=== PATIENT | male | born 1945 | race Caucasian/White ===

== ENCOUNTER 2024-10-04 12:38 | Inpatient (IN) ==
[2024-10-04] MEDS: SODIUM CHLORIDE 0.9% 500 ML IV SCH (12:51)
--- NOTE | 2024-10-04 12:59 | XRay Report ---
XR chest 1V portable CLINICAL HISTORY: trauma COMPARISON STUDY: None FINDINGS: Left cardiac pacemaker is present. Heart size and pulmonary vasculature are normal. No cons olidation or pleural effusion seen. No pneumothorax. IMPRESSION: No acute findings. ACT 112: Negative or not required by law. Electronically signed by: Madhav Louis M.D. 10/04/2024 12:58 PM
[2024-10-04 13:02] LABS: Base Excess VBG 3.0 mEq/L; HCO3 VBG 29 mmol/L; Oxygen Saturation VBG < 60.0 %; PCO2 VBG 49 mmHg (38-50); PO2 VBG 22 mmHg; pH VBG 7.38 (7.36-7.41)
--- NOTE | 2024-10-04 13:15 | Emergency Department Note ---
Impression & Plan Weakness, Falling, Dehydration, Pancytopenia, Elevated troponin ED Provider Note NAME: GONZÁLEZ HOLM AGE: 78 SEX: M : 1945 ARRIVES VIA: Ambulance INFORMANT: [Patient][ems] ED PROVIDER(S): [John Yusuf MD] CHIEF COMPLAINT: Trauma HISTORY OF PRESENT ILLNESS: The patient is a 78-year-old male who presents to the ED as a trauma alert. The patient was found on his porch by home health, the exact time that he was down is unknown. As per report, he had fallen around 6 times yesterday. The patient complained of bilateral leg weakness. He denied any headache or neck pain. He did not have chest pain, there was no shortness of breath. No abdominal pain. No real pain to the extremities. No complaints of back discomfort. The patient states that his blood sugar has been running a bit high lately. There has been no cough or congestion. The patient does take aspirin, no other stronger blood thinning agents. PMHx/PSHx/Social Hx: See Below PHYSICAL EXAM: Primary Survey Airway: Intact Breathing: Breath sounds equal bilaterally. No respiratory distress Circulation: Skin warm, capillary refill less than 2 seconds Disability: Pupils equal and reactive to light Motor Function: Moves all extremities. Sensory: No deficits Secondary Survey GEN: Well developed and well-nourished HEAD: Normocephalic, atraumatic. Mucous membranes dry. EYES: Pupils round and reactive to light, conjunctiva clear, extraocular movements intact ENT: No fluid in external acoustic canals, nares patent, oropharynx clear NECK: Midline trachea, no cervical spine tenderness HEART: Regular rate and rhythm LUNGS: Clear to auscultation bilaterally CHEST: Chest wall non-tender, no bruising/deformity ABD: No contusions, soft, non-tender, no distention PELVIS: Stable to rock BACK: No step offs or deformities, T-L spine non tender EXT: Moving all extremities well, no gross deformities NEURO: No focal motor deficits, no sensory deficits DIFFERENTIAL DIAGNOSIS: Intracranial injury, cervical spine injury, dehydration, electrolyte imbalance, bacteremia, UTI, among others. EMERGENCY DEPARTMENT PROCEDURES: C-spine was clearly cleared at 1330, once the CT imaging returned. MEDICAL DECISION MAKING: There is a pancytopenia present, I have no old values to use for comparison. No bandemia. No coagulopathy. VBG did not show acidosis. There was some elevation to the creatinine at 1.94. Glucose was elevated at 285. Lactic acid level was not elevated making sepsis less likely. No liver enzyme elevation. TSH was slightly high however, the T4 was normal. ECG showed a sinus rhythm with inverted T waves, no old ECGs to use for comparison. Cardiac enzyme testing x 1 was somewhat elevated, this troponin elevation could be secondary to his renal disease, mismatch or potentially acute cardiac injury. Chest x-ray does not show pneumonia or pneumothorax. Brain CT shows chronic hygromas, no acute intracranial bleeding. No brain shift. C-spine CT showed no acute fracture. On exam, the patient appeared dehydrated. The patient received IV saline, 1.5 L. He was given IV Tylenol for pain, IV Zofran for nausea. Patient presents after falling multiple times in the last 24 hours. No serious traumatic findings by our workup. Patient is clearly in need of a hospital stay, strengthening, hydration. He may not be safe for discharge back to his residence. I did speak with the patient and case management, the on-call hospitalist was consulted. Prior/Outside records/notes reviewed: Today's EMS notes describing his presentation and transport to this hospital. ECG per my interpretation: Indication was weakness, trauma. The ECG shows a sinus rhythm with PACs. The rate is 89. There are inverted T waves seen in the inferior and lateral leads. There is no ST elevation. No PVCs. The QTc is 455. No old ECGs available for comparison. Continuous Cardiac Monitoring per my interpretation: An order was placed for continuous cardiac monitoring. The monitor shows a rate of 86 with sinus rhythm with PACs. Imaging/x-ray results per my interpretation: Chest x-ray does not show mediastinal widening, pneumonia or pneumothorax. No obvious acute traumatic chest injury by plain x-ray. Chronic Medical/Social conditions affecting care: Advanced age. Care/Management discussed with: Case management, the on-call hospitalist. Level of care consideration(s): After review of the information above and other included data: --I believe the patient requires escalation of care to admission DISPOSITION: Admission Past Med/Surg History Problem List (Updated 10/04/24 @ 14:41 by John Yusuf MD) Elevated troponin (Acute) Pancytopenia (Acute) Dehydration (Acute) Falling (Acute) Weakness (Acute) Medical History Diabetes mellitus Social History Smoking Status: Never smoker Preferred Language: Algerian Feels Safe at Home: Yes Home Meds Home Medications Medication Instructions Recorded Confirmed aspirin 81 mg tablet,delayed 81 mg PO DAILY 10/04/24 10/04/24 release carvedilol 6.25 mg tablet (Coreg) 6.25 mg PO BID 10/04/24 10/04/24 chlorthalidone 25 mg tablet 25 mg PO DAILY 10/04/24 10/04/24 cyanocobalamin (vitamin B-12) 1,000 mcg PO DAILY 10/04/24 10/04/24 1,000 mcg tablet (Vitamin B-12) insulin glargine 100 unit/mL (3 25 unit subcut DAILY 10/04/24 10/04/24 mL) subcutaneous pen meloxicam 15 mg tablet 7.5 mg PO DAILY 10/04/24 10/04/24 potassium chloride 20 mEq 40 meq PO DAILY 10/04/24 10/04/24 tablet,extended release rosuvastatin 10 mg tablet 10 mg PO DAILY 10/04/24 10/04/24 Results & Data (ED) Vital Signs Vital Signs - 24 hr 10/04/24 12:40 10/04/24 12:40 10/04/24 12:40 Temperature 36.5 C 36.5 C Temperature Source Oral Pulse Rate 92 H 92 H Pulse Rate [Apical] Pulse Strength [Bilateral Femoral] Normal Respiratory Rate 17 17 Respiratory Effort / Characteristics Non-Labored Spontaneous Respiratory Depth Normal Respiratory Pattern Regular Blood Pressure 152/95 H 152/95 H Blood Pressure [Right Arm] Blood Pressure Mean 114 Blood Pressure Mean [Right Arm] Pulse Oximetry 94 94 94 Oxygen Delivery Method Room Air Room Air Room Air Oxygen Flow Rate 0 Sepsis Recent Fever Within 48 Hours No Sepsis New/Unexplained Change in Mental Status No Sepsis Action Taken by Nursing No Action Required 10/04/24 12:40 10/04/24 13:08 Temperature 36.5 C Temperature Source Oral Pulse Rate 86 Pulse Rate [Apical] 92 H Pulse Strength [Bilateral Femoral] Respiratory Rate 17 Respiratory Effort / Characteristics Non-Labored Spontaneous Respiratory Depth Normal Respiratory Pattern Blood Pressure Blood Pressure [Right Arm] 152/95 H Blood Pressure Mean Blood Pressure Mean [Right Arm] 114 Pulse Oximetry 94 Oxygen Delivery Method Room Air Oxygen Flow Rate Sepsis Recent Fever Within 48 Hours Sepsis New/Unexplained Change in Mental Status Sepsis Action Taken by [place] Medications Current Medication List: was personally reviewed by me Laboratory Data Attestation: I reviewed the patient's lab results. 10/04/24 12:46 10/04/24 12:46 Lab Results 10/04/24 10/04/24 Range/Units 12:46 12:49 WBC 1.54 L (4.8-10.8) K/ul RBC 4.10 L (4.70-6.10) M/uL Hgb 12.9 L (14.0-18.0) g/dl POC Hgb 11.9 L (14.0-18.0) g/dl Hct 36.3 L (42.0-52.0) % POC Hct 35 L (42-52) % MCV 88.5 (80.0-100.0) fL MCH 31.5 (25.0-34.0) pg MCHC 35.5 (32.0-36.0) g/dL RDW Std Deviation 43.0 (36.4-46.3) fL RDW Coeff of Melissa 13.2 (11.5-14.5) % Plt Count 63 L (130-400) K/uL MPV 11.3 (9.4-12.4) fL Immature Gran % (Auto) 1.3 % Neut % (Auto) 71.5 % Lymph % (Auto) 10.4 % [place] % (Auto) 16.2 % Eos % (Auto) 0.0 % Baso % (Auto) 0.6 % Neut # (Auto) 1.10 L (1.40-6.50) K/uL Lymph # (Auto) 0.16 L (1.20-3.40) K/uL [place] # (Auto) 0.25 (0.11-0.59) K/uL Eos # (Auto) 0.00 (0.00-0.50) K/uL Baso # (Auto) 0.01 (0.00-0.20) K/uL Immature Gran # (Auto) 0.02 (0.01-0.20) K/uL Polychromasia 1+ PT 10.1 (9.0-12.0) Seconds INR 0.9 (0.9-1.1) APTT 35 H (21-31) Seconds PTT Ratio 1.3 VBG pH 7.38 (7.36-7.41) VBG pCO2 49 (38-50) mmHg VBG pO2 22 mmHg VBG HCO3 29 mmol/L VBG O2 Saturation < 60.0 % VBG Base Excess 3.0 mEq/L POC Sodium 133 L (135-144) mmol/L Sodium 133 L (136-145) mmol/L POC Potassium 3.4 (3.3-5.0) mmol/L Potassium 3.4 L (3.5-5.1) mmol/L POC Chloride 96 L (101-112) mmol/L Chloride 97 L (98-107) mmol/L Carbon Dioxide 27 (21-32) mmol/L POC Total CO2 24 (24-31) mmol/L Anion Gap 9 (3-11) POC Anion Gap 17.0 (16-25) mmol/L POC BUN 40 H (7-18) mg/dl BUN 45 H (6-23) mg/dl Creatinine 1.94 H (0.6-1.4) mg/dl POC Creatinine 2.0 H (0.6-1.3) mg/dl Est Cr Clr Drug Dosing 32.4 ml/min eGFR 34.78 BUN/Creatinine Ratio 23.2 H (10-20) Glucose 285 H (70-99(Fasting)) mg/dl POC Glucose (other) 272 H (70-99) mg/dl Lactate 1.3 (0.4-2.0) mmol/L Calcium 8.2 L (8.6-10.3) mg/dl POC Ioniz Calcium Emilia 1.01 L (1.12-1.32) mmol/l Magnesium 2.1 (1.7-2.4) mg/dl Total Bilirubin 0.8 (0.2-1.0) mg/dl AST 32 (13-39) U/L ALT 23 (7-52) U/L Alkaline Phosphatase 76 (34-104) U/L Total Creatine Kinase 135 (30-223) U/L Troponin I High Sens 79.2 H* (0-20) pg/ml Total Protein 6.2 (6.0-8.3) gm/dl Albumin 3.1 L (3.4-5.0) gm/dl Globulin 3.1 (2.5-4.0) gm/dl Albumin/Globulin Ratio 1.0 (0.9-2) TSH 5.255 H (0.300-4.500) uIu/ml Free T4 0.69 (0.61-1.60) ng/dl Administered Medications Sodium Chloride (Nss) 1,000 mls @ 999 mls/hr IV .Q1H1M ONE Stop: 10/04/24 15:03 Last Admin: 10/04/24 14:16 Dose: 999 mls/hr Documented By: VIC Discontinued Medications Sodium Chloride (Nss) 500 mls @ 999 mls/hr IV .Q31M LOTUS Stop: 10/04/24 13:15 Last Infusion: 10/04/24 13:23 Dose: Infused Documented By: Admin: 10/04/24 12:51 Dose: 999 mls/hr Documented By: RAMÓN Acetaminophen (Ofirmev) 1,000 mg in 100 mls @ 400 mls/hr IV NOW STA Stop: 10/04/24 14:19 Last Admin: 10/04/24 14:15 Dose: 400 mls/hr Documented By: VIC Ondansetron HCl (Ondansetron Inj 2 Mg/Ml 2 Ml Vial) 4 mg IV NOW STA Stop: 10/04/24 14:06 Last Admin: 10/04/24 14:15 Dose: 4 mg Documented By: VIC Imaging Data Radiologist's Impression: Cervical Spine CT 10/04/24 12:43 CT cervical spine wo con CT DOSE: 1217.53 mGy.cm CLINICAL HISTORY: 78 years-old Male with fall. Acute neck pain status post fall COMPARISON: Head CT same day TECHNIQUE: Multiple axial CT images of the cervical spine were obtained without contrast. A dose lowering technique was utilized adhering to the principles of ALARA. FINDINGS: Straightening of the normal cervical lordosis. Moderate to severe multilevel intervertebral disc space narrowing and, spondylitic spurring and facet arthrosis. Chronic appearing metallic density BB's are lodged within the left facial structures. Multinodular thyroid. Chronic appearing left cerebellar lacunar infarcts. Left subclavian pacer. The visualized lung apices appear clear. IMPRESSION: No acute cervical spine fracture or subluxation. ACT 112: Negative or not required by law. The above report was generated using voice recognition software. It may contain grammatical, syntax or spelling errors. Electronically signed by: John Garibay M.D. 10/04/2024 1:20 PM Chest X-Ray 10/04/24 12:43 XR chest 1V portable CLINICAL HISTORY: trauma COMPARISON STUDY: None FINDINGS: Left cardiac pacemaker is present. Heart size and pulmonary vasculature are normal. No consolidation or pleural effusion seen. No pneumothorax. IMPRESSION: No acute findings. ACT 112: Negative or not required by law. Electronically signed by: Madhav Louis M.D. 10/04/2024 12:[address] 10/04/24 12:43 CT SCAN OF THE BRAIN WITHOUT IV CONTRAST CLINICAL HISTORY: Fall. COMPARISON STUDY: None. TECHNIQUE: Unenhanced axial CT scan of the brain was performed from the vertex to the skull base. A dose lowering technique was utilized adhering to the principles of ALARA. FINDINGS: No acute intracranial hemorrhage is present. The ventricular system is unremarkable. Basal cisterns are patent. Note is made of CSF attenuation subdural collections, right larger than left. The right collection measures 1 cm in thickness. There is mild associated sulcal effacement. Old lacunar infarcts within left cerebellar hemisphere present. White matter hypodensity suggests small vessel disease. 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 Several left facial metallic densities are present. There is mild sinus mucosal thickening. There are no calvarial fractures. IMPRESSION: 1. No acute intracranial findings. 2. No calvarial fractures. 3. CSF attenuation subdural collections, right larger than left. Minimal sulcal effacement. These are chronic and may represent subdural hygromas or chronic subdural hematomas. ACT 112: Negative or not required by law. Electronically signed by: Wang Abel M.D. 10/04/2024 1:18 PM Discharge Plan Visit Data Chief Complaint: Trauma Stated Complaint: FALL, LACS TO HEAD, AMS ED Provider: John Yusuf Discharge Problem: Weakness, Falling, Dehydration, Pancytopenia, Elevated troponin Patient Disposition: Admitted As Inpatient Condition: Fair Forms Stand Alone Forms: My [facility], Important Visit Information Prescriptions Prescriptions: No Action carvedilol [Coreg] 6.25 mg Tablet 6.25 mg PO BID Rx Instructions: must administer with a meal/food meloxicam 15 mg Tablet 7.5 mg PO DAILY cyanocobalamin (vitamin B-12) [Vitamin B-12] 1,000 mcg Tablet 1,000 mcg PO DAILY chlorthalidone 25 mg Tablet 25 mg PO DAILY aspirin 81 mg Tablet,Delayed Release (Dr/Ec) 81 mg PO DAILY rosuvastatin 10 mg Tablet 10 mg PO DAILY insulin glargine 100 unit/mL (3 mL) Insulin Pen 25 unit SUBCUT DAILY potassium chloride 20 mEq Tablet Extended Release 40 meq PO DAILY Referrals Referrals: PCP,NO [Physician] -
--- NOTE | 2024-10-04 13:19 | CT Scan Report ---
CT SCAN OF THE BRAIN WITHOUT IV CONTRAST CLINICAL HISTORY: Fall. COMPARISON STUDY: None. TECHNIQUE: Unenhanced axial CT scan of the brain was performed from the vertex to the skull base. A dose lowering technique was utilized adhering to the principles of ALARA. FINDINGS: No acute intracranial hemorrhage is present. The ventricular system is unremarkable. Basal cisterns are patent. Note is made of CSF attenuation subdural collections, right larger than left. Th e right collection measures 1 cm in thickness. There is mild associated sulcal effacement. Old lacuna r infarcts within left cerebellar hemisphere present. White matter hypodensity suggests small vessel disease. 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 Several left facial metallic densities are present. There is mild sinus mucosal thickening. There are no calvarial fractures. IMPRESSION: 1. No acute intracranial findings. 2. No calvarial fractures. 3. CSF attenuation subdural collections, right larger than left. Minimal sulcal effacement. These are chronic and may represent subdural hygromas or chronic subdural hematomas. ACT 112: Negative or not required by law. Electronically signed by: Wang Abel M.D. 10/04/2024 1:18 PM
[2024-10-04 13:20] LABS: Hematocrit (blood only) 36.3 % (42.0-52.0); Hemoglobin 12.9 g/dl (14.0-18.0); Mean Corpuscular Hemoglobin 31.5 pg (25.0-34.0); Mean Corpuscular Volume 88.5 fL (80.0-100.0); Platelet Count 63 K/uL (130-400); RDW Standard Deviation 43.0 fL (36.4-46.3); Red Blood Count 4.10 M/uL (4.70-6.10); White Blood Count 1.54 K/ul (4.8-10.8)
--- NOTE | 2024-10-04 13:23 | CT Scan Report ---
CT cervical spine wo con CT DOSE: 1217.53 mGy.cm CLINICAL HISTORY: 78 years-old Male with fall. Acute neck pain status post fall COMPARISON: Head CT same day TECHNIQUE: Multiple axial CT images of the cervical spine were obtained without contrast. A dose low ering technique was utilized adhering to the principles of ALARA. FINDINGS: Straightening of the normal cervical lordosis. Moderate to severe multilevel intervertebral disc space narrowing and, spondylitic spurring and facet arthrosis. Chronic appearing metallic densi ty BB's are lodged within the left facial structures. Multinodular thyroid. Chronic appearing left ce rebellar lacunar infarcts. Left subclavian pacer. The visualized lung apices appear clear. IMPRESSION: No acute cervical spine fracture or subluxation. ACT 112: Negative or not required by law. The above report was generated using voice recognition software. It may contain grammatical, syntax o r spelling errors. Electronically signed by: John Garibay M.D. 10/04/2024 1:20 PM
[2024-10-04 13:25] LABS: Alanine Aminotransferase 23.0 U/L (7-52); Albumin Globulin Ratio 1.0 (0.9-2); Alkaline Phosphatase 76.0 U/L (34-104); Anion Gap 9.0 (3-11); Bilirubin,Total 0.8 mg/dl (0.2-1.0); Blood Urea Nitrogen 45.0 mg/dl (6-23); Calcium 8.2 mg/dl (8.6-10.3); Carbon Dioxide 27.0 mmol/L (21-32); Chloride 97.0 mmol/L (98-107); Creatine Kinase 135.0 U/L (30-223); Creatinine Clr Calc Pharmacy 32.4 ml/min; Globulin 3.1 gm/dl (2.5-4.0); Glucose 285.0 mg/dl (70-99(Fasting)); Magnesium 2.1 mg/dl (1.7-2.4); Potassium 3.4 mmol/L (3.5-5.1); Sodium 133.0 mmol/L (136-145); Total Protein 6.2 gm/dl (6.0-8.3)
[2024-10-04 13:32] LABS: Immature Granulocytes # (auto) 0.02 K/uL (0.01-0.20); Immature Granulocytes % (auto) 1.3 %; Polychromasia 1+
[2024-10-04 13:35] LABS: INR 0.9 (0.9-1.1); Partial Thromboplastin Time 35 Seconds (21-31); Prothrombin Time 10.1 Seconds (9.0-12.0)
[2024-10-04 13:39] LABS: Thyroid Stimulating Hormone 5.255 uIu/ml (0.300-4.500)
[2024-10-04] MEDS: ACETAMINOPHEN 1,000 MG/100 ML VIAL IV STA (14:15)
[2024-10-04] MEDS: ONDANSETRON INJ 2 MG/ML 2 ML VIAL IV STA (14:15)
[2024-10-04] MEDS: SODIUM CHLORIDE 0.9% 1,000 ML IV ONE (14:16)
--- NOTE | 2024-10-04 14:42 | History & Physical Report ---
Date of Service October 04, 2024 Assessment & Plan (1) Pancytopenia: (2) Elevated troponin: (3) Generalized weakness: (4) Recurrent falls: (5) Chronic heart failure with preserved ejection fraction (HFpEF): (6) History of complete heart block: (7) Pacemaker: (8) CAD (coronary artery disease): (9) HTN (hypertension): (10) Diabetes mellitus, type II: Plan: Assessment and Plan per Dr Wilcox. See addendum Admit telemetry Full Code as per discussion with pt Follows with [facility] for routine care Pt was seen and care coordinated with Dr Wilcox. See addendum I spent a total of 75 minutes reviewing notes, outpatient records, labs, medication, coordinating, documenting and providing care for this patient excluding time spent in the performance of separately billed services and excluding time spent by another provider/QHP. History of Present Illness Chief Complaint: Recurrent falls Primary Care Provider: [facility] Patient is 78 year old male with PMH CAD s/p multiple RCA stents including cover stents on 08/24/2018, complicated by complete heart block and perforation, s/p pacemaker 08/29/2018, h/o pericardial effusion resolved spontaneously and did not require drainage, chronic HFpEF, HTN, HLD, DM II, PTSD, vitamin D deficiency, and others listed below presented to ER with c/o recurrent falls. Per outpatient chart review of scanned records pt with History hospitalization at [facility] 08/18/2024 with diagnosis of acute on chronic HFpEF, E coli UTI. Patient states was also treated for pneumonia. He reports since home has had continued generalized weakness. Patient reports chronic bilateral posterior leg pain and chronic BLE weakness for "many years". He states past several months with generalized weakness. He has walker but does not use it. He reports falls multiple times a day and almost on a daily basis. He states fell at least 6 times yesterday that he reports stands and walks and feels like his legs are giving out causing him to fall. He states he did hit his head yesterday. Denies LOC. He doesn't feel he is getting dizzy prior to falls. Denies CP. States has been SOB with exertion since July 2024. Denies orthopnea. Today he states he went out on porch and sat down and lay on porch until the home health nurse came today but he is unable to determine how long he was on the porch. He has been having difficulty getting up after falls. nurse comes weekly. Reports was placed on diuretics after hospital discharge but unsure of name. He reports 15 pound weight loss over past 5 weeks. He feels his BLE edema has resolved. He unsure of his home medications. He reports poor appetite and ongoing nausea but unable to tell how long been having nausea. Reports decreased oral intake. No known fevers but reports is intermittently cold. Denies known tick bite. Denies diaphoresis, vomiting, abdominal pain, diarrhea, constipation, melena, hematochezia, BRAUN, syncope, vision changes, neck pain, palpitations, cough, sore throat, rhinorrhea, abdominal pain, paresthesias, rashes, urinary symptoms. Allergies Allergy/AdvReac Type Severity Reaction Status Date / Time No Known Allergies Allergy Unverified 10/04/24 14:55 Home Medications Medication Instructions Recorded Confirmed Type aspirin 81 mg tablet,delayed 81 mg PO DAILY 10/04/24 10/04/24 History release carvedilol 6.25 mg tablet (Coreg) 3.125 mg PO BID 10/04/24 10/04/24 History chlorthalidone 25 mg tablet 25 mg PO DAILY 10/04/24 10/04/24 History cholecalciferol (vitamin D3) 25 50 mcg PO DAILY 10/04/24 10/04/24 History mcg (1,000 unit) tablet (Vitamin D3) cyanocobalamin (vitamin B-12) 1,000 mcg PO DAILY 10/04/24 10/04/24 History 1,000 mcg tablet (Vitamin B-12) insulin glargine 100 unit/mL (3 25 unit subcut DAILY 10/04/24 10/04/24 History mL) subcutaneous pen meloxicam 15 mg tablet 7.5 mg PO DAILY 10/04/24 10/04/24 History nifedipine 60 mg tablet,extended 60 mg PO DAILY 10/04/24 10/04/24 History release potassium chloride 20 mEq 40 meq PO DAILY 10/04/24 10/04/24 History tablet,extended release rosuvastatin 10 mg tablet 10 mg PO DAILY 10/04/24 10/04/24 History sitagliptin 50 mg tablet 50 mg PO DAILY 10/04/24 10/04/24 History torsemide 20 mg tablet 20 mg PO DAILY 10/04/24 10/04/24 History Past Med/Surg History Problem List (Updated 10/04/24 @ 19:45 by Katarina Ruiz PA-C) Recurrent falls Generalized weakness Elevated troponin (Acute) Pancytopenia (Acute) Dehydration (Acute) Falling (Acute) Weakness (Acute) Medical History (Updated 10/04/24 @ 19:45 by Katarina Ruiz PA-C) History of complete heart block Pacemaker Chronic heart failure with preserved ejection fraction (HFpEF) CAD (coronary artery disease) HTN (hypertension) Diabetes mellitus, type II Surgical History (Updated 10/04/24 @ 17:43 by Katarina Ruiz PA-C) History of cardiac catheterization Social History (Updated 10/04/24 @ 17:43 by Katarina Ruiz PA-C) Smoking Status: Never smoker Hx Alcohol Use: No Hx Substance Use: No Preferred Language: Scottish Feels Safe at Home: Yes Review of Systems Review of Systems: All systems reviewed & are unremarkable except as noted in HPI & below Physical Exam Physical Exam: General: no distress, WDWN, chronic ill appearing elderly male Head: normocephalic, atraumatic Eyes: conjunctiva non-injected, anicteric ENT: normal inspection external ears, nose, mucous membranes moist Neck: supple, trachea midline, non-tender to palpation Lungs: clear, no respiratory distress, no wheezing/rhonchi/rales CV: RRR, no pretibial edema Abd: normal BS, soft, non-tender Back: no spinous process tenderness to palpation Ext: no cyanosis, no calf tenderness Neuro: A&O x 3, +diffuse upper and lower extremity weakness, normal affect Skin: warm, dry, +abrasions noted all over body Results & Data Results & Data Vital Signs (Past 12 Hours) Vital Signs Temp Pulse Pulse Resp BP BP Pulse Ox 10/04/24 13:08 86 10/04/24 12:40 36.5 C 92 H 17 152/95 H 94 10/04/24 12:40 36.5 C 92 H 17 152/95 H 94 10/04/24 12:40 94 10/04/24 12:40 36.5 C 92 H 17 152/95 H 94 O2 Del Method O2 Flow Rate 10/04/24 13:08 10/04/24 12:40 Room Air 10/04/24 12:40 Room Air 0 10/04/24 12:40 Room Air 10/04/24 12:40 Room Air Laboratory Results Short CBC 10/04/24 10/04/24 10/04/24 Range/Units 12:46 12:46 12:46 WBC 1.54 L Cancelled (4.8-10.8) K/ul Hgb 12.9 L Cancelled (14.0-18.0) g/dl Hct 36.3 L (42.0-52.0) % Plt Count (130-400) K/uL 10/04/24 10/04/24 Range/Units 12:46 12:46 WBC (4.8-10.8) K/ul Hgb (14.0-18.0) g/dl Hct Cancelled (42.0-52.0) % Plt Count 63 L Cancelled (130-400) K/uL BMP 10/04/24 12:46 Sodium 133 L Potassium 3.4 L Chloride 97 L Carbon Dioxide 27 BUN 45 H Creatinine 1.94 H Glucose 285 H Calcium 8.2 L Cardiac Enzymes 10/04/24 Range/Units 12:46 Total Creatine Kinase 135 (30-223) U/L Liver Function 10/04/24 Range/Units 12:46 Total Bilirubin 0.8 (0.2-1.0) mg/dl AST 32 (13-39) U/L ALT 23 (7-52) U/L Alkaline Phosphatase 76 (34-104) U/L Albumin 3.1 L (3.4-5.0) gm/dl Diagnostic Findings Cervical Spine CT 10/04/24 12:43 CT cervical spine wo con CT DOSE: 1217.53 mGy.cm CLINICAL HISTORY: 78 years-old Male with fall. Acute neck pain status post fall COMPARISON: Head CT same day TECHNIQUE: Multiple axial CT images of the cervical spine were obtained without contrast. A dose lowering technique was utilized adhering to the principles of ALARA. FINDINGS: Straightening of the normal cervical lordosis. Moderate to severe multilevel intervertebral disc space narrowing and, spondylitic spurring and facet arthrosis. Chronic appearing metallic density BB's are lodged within the left facial structures. Multinodular thyroid. Chronic appearing left cerebellar lacunar infarcts. Left subclavian pacer. The visualized lung apices appear clear. IMPRESSION: No acute cervical spine fracture or subluxation. ACT 112: Negative or not required by law. The above report was generated using voice recognition software. It may contain grammatical, syntax or spelling errors. Electronically signed by: John Garibay M.D. 10/04/2024 1:20 PM Chest X-Ray 10/04/24 12:43 XR chest 1V portable CLINICAL HISTORY: trauma COMPARISON STUDY: None FINDINGS: Left cardiac pacemaker is present. Heart size and pulmonary vasculature are normal. No consolidation or pleural effusion seen. No pneumothorax. IMPRESSION: No acute findings. ACT 112: Negative or not required by law. Electronically signed by: Madhav Louis M.D. 10/04/2024 12:[address] 10/04/24 12:43 CT SCAN OF THE BRAIN WITHOUT IV CONTRAST CLINICAL HISTORY: Fall. COMPARISON STUDY: None. TECHNIQUE: Unenhanced axial CT scan of the brain was performed from the vertex to the skull base. A dose lowering technique was utilized adhering to the principles of ALARA. FINDINGS: No acute intracranial hemorrhage is present. The ventricular system is unremarkable. Basal cisterns are patent. Note is made of CSF attenuation subdural collections, right larger than left. The right collection measures 1 cm in thickness. There is mild associated sulcal effacement. Old lacunar infarcts within left cerebellar hemisphere present. White matter hypodensity suggests small vessel disease. 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 Several left facial metallic densities are present. There is mild sinus mucosal thickening. There are no calvarial fractures. IMPRESSION: 1. No acute intracranial findings. 2. No calvarial fractures. 3. CSF attenuation subdural collections, right larger than left. Minimal sulcal effacement. These are chronic and may represent subdural hygromas or chronic subdural hematomas. ACT 112: Negative or not required by law. Electronically signed by: Wang Abel M.D. 10/04/2024 1:18 PM Abdomen/Pelvis CT 10/04/24 14:39 EXAMINATION: CT of the abdomen and pelvis performed without contrast TECHNIQUE: Helical CT images from the lung bases through the symphysis pubis were obtained without contrast. Coronal and sagittal reformatted images were generated at a workstation for further assessment. Dose reduction techniques were achieved by using automatic exposure control and/or adjustment of mA and/or kV according to patient size and/or use of iterative reconstruction technique. COMPARISON: None HISTORY: Abdominal pain FINDINGS: Lower chest: No consolidation. No pleural effusion or pneumothorax. Liver: No suspicious liver lesions. Gallbladder: There is a prominent calcified gallstone. The gallbladder is otherwise decompressed. No evidence of acute cholecystitis. Spleen: Normal size. Pancreas: No suspicious pancreatic lesions. The pancreatic duct is not dilated. Adrenal glands: Bilateral adrenal nodules on the left measuring 2.4 x 2.2 cm and the right measuring 1.9 x 1.7 cm, containing internal low-attenuation values compatible with macroscopic fat, indicating lipid rich adenomas. Kidneys: No hydronephrosis or obstructing renal stones. Bilateral simple appearing cysts. Bladder / Pelvic organs: Unremarkable. Bowel: No bowel obstruction. No abnormal bowel wall thickening. The appendix is unremarkable. Lymph nodes: No retroperitoneal, mesenteric, or pelvic lymphadenopathy. Peritoneum / Retroperitoneum: No free fluid or air within the abdomen. Vessels: No infrarenal aortic aneurysm. Heavy aortoiliac calcification. Bones and soft tissues: No suspicious lesion in the bones. IMPRESSION: No acute intra-abdominal process. Bilateral lipid rich adrenal adenomas. Cholelithiasis. Electronically signed by Lupillo Velarde 10-04-2024 4:35 PM Supervising Physician Co-Signing Physician Notes I have seen and discussed the case with the collaborating advanced practitioner. I agree with the above H&P. I have reviewed and confirmed the patients medical history, the findings on physical examination, and the patients diagnosis and treatment plan with Sara AVILA and agree with the information documented. In short, Mr. Watson is a 78 yo who is admitted for evaluation of multiple lab abnormalities including margaret on ckd, new pancytopenia, elevated trop. Patient is not able to relay detailed history accurately, therefore son and grandson aided. He states that he has been weaker and weaker over the course of the last 2 weeks, but never "great" since his hospitalization end of July. He lives alone and relies on his home health and grandson for medication management. Patient does state he often trims the hedges and mows the grass and is unsure if he has been exposed to a tick . Appears to be on chlorthalidone and torsemide 20mg daily from a recent admission at OSH for which he was treated for "heart failure, pneumonia, and urine infection." EXAM notable for chronically ill appearing gentleman with left eye prosthesis/ptosis alert to self, time, location and situation RRR, no murmur clear lung ziegler moving all extremities equally no edema Per chart review in Care Everywhere: 1) ASPIRIN 81MG EC TAB TAKE ONE TABLET BY MOUTH EVERY DAY FOR ACTIVE (S) HEART DISEASE 2) CARVEDILOL 6.25MG TAB TAKE ONE-HALF TABLET BY MOUTH TWICE A ACTIVE DAY FOR CHF, CAD, AND HYPERTENSION Indication: CHF,CAD,HTN 3) CHLORTHALIDONE 25MG TAB TAKE ONE TABLET BY MOUTH EVERY DAY ACTIVE FOR HYPERTENSION 4) CHOLECALCIF 25MCG (D3-1,000UNIT) TAB TAKE TWO TABLETS BY ACTIVE (S) MOUTH EVERY DAY SAME VITAMIN D3 FOR VITAMIN D DEFICIENCY 5) CYANOCOBALAMIN 1000MCG TAB TAKE ONE TABLET BY MOUTH EVERY ACTIVE (S) DAY SAME VITAMIN B12 FOR SUPPLEMENT 6) INSULIN,GLARGINE 100 UNT/ML 3ML SOLOSTAR INJECT 25 UNITS ACTIVE SUBCUTANEOUSLY EVERY DAY FOR DIABETES REPLACES INSULIN GLARGINE-YFGN 7) MELOXICAM 15MG TAB TAKE ONE-HALF TABLET BY MOUTH EVERY DAY ACTIVE NEEDED FOR ONLY NEEDED Indication: BACK PAIN 8) NIFEDIPINE (EQV-CC) 60MG SA TAB TAKE ONE TABLET BY MOUTH ACTIVE EVERY DAY FOR BLOOD PRESSURE 9) POTASSIUM CL 20MEQ SA TAB (DISPERSIBLE) TAKE TWO TABLETS BY ACTIVE MOUTH TWICE A DAY POTASSIUM SUPPLEMENT *NOTE DOSE INCREASE* Indication: HYPOKALEMIA PROHPLAXSIS 10) PRODIGY NO CODE (GLUCOSE) TEST STRIP USE ONE STRIP TWICE A ACTIVE DAY 11) ROSUVASTATIN CA 10MG TAB TAKE ONE TABLET BY MOUTH AT BEDTIME ACTIVE (S) FOR CHOLESTEROL 12) SITAGLIPTIN (EQV-ZITUVIO) 50MG TAB TAKE ONE TABLET BY MOUTH ACTIVE EVERY DAY Indication: FOR TYPE 2 DIABETES 13) TORSEMIDE 20MG TAB TAKE ONE TABLET BY MOUTH EVERY DAY ACTIVE Indication: CHF Prior Diagnostic Test Results: EKG 08/18/2024 showed sinus rhythm, PACs, anterior infarct, ST-T wave changes suggestive of inferolateral wall ischemia. Echocardiogram 08/21/2024 showed ejection fraction of 55%, mildly dilated ascending aorta measured 3.9 cm, trace aortic insufficiency, trace mitral insufficiency and trace tricuspid insufficiency. Follows Dr. [facility] #Pancytopenia #Mild neutropenia coags stable ANC 1121.12 lactate 1.3 Order infectious workup, including lyme and blood cultures order anemia studies CT AB/P ordered Trend CBC with diff CTX and doxy for now (ecoli pansensitive per OSH report and doxy for tick bourne coverage) ESR/CRP and procal pending Neutropenic precautions for now until trend noted hold asa given platelets at 63 #Multiple falls #Generalized weakness PT/OT extensive metabolic work up as above fall precautions #Abnormal EKG #elevated troponin, suspect demand ECHO ordered Trend trop Consider Cardiology contingent on trends #MARGARET on CKD recent labs reviewed and Cr. 1.6, on admission 1.94 discontinue meloxicam suspect over diuresis give chlorthalidone and torsemide on med rec s/p 1.5L NS, potentially iso dehydration v underlying infectious process #hypokalemia replace po continue home po replacement hold chlorthalidone and torsemide trend bmp in am #Hyponatremia 136 when corrected for hyperglycemia better glucose control #Status post multiple coronary stents placed in the right coronary artery #Coronary stent procedure complicated by perforation requiring a covered stent #Complete heart block following stent placement requiring a permanent pacemaker 4 Hooper Pacemaker Dual Chamber, placed [address] Parisi Continue metoprolol BID hold asa continue statin # Diabetes mellitus Update A1C hold oral hypoglycemics glargine 25 Units qd basal bolus while admitted # Essential hypertension discontinue chlorthalidone hold torsemide continue coreg continue nifedipine #Abnormal TFTs TSH 5.255, free T4 0.69 consider follow up as op for repeat in 4-6 weeks # Previous war injury with shrapnel to the left eye and possible traumatic brain injury resulting in some cognitive slowing. monitor for risk of delirium I spent a total of 45 minutes coordinating, documenting, and providing care for this patient excluding time spent in the performance of separately billed services. All of the aforementioned completed outside of collaborating with the assigned advanced practitioner for a full treatment plan. I have reviewed the advanced practitioner's documentation, and I agree with, and take responsibility for the plan of care
[2024-10-04 15:32] LABS: Iron 21.0 mcg/dl (35-175); Total Iron Binding Cap Calc 241.0 mcg/dl (250-450); Transferrin 172.0 mg/dl (200-360); Transferrin (FE) Percent Satur 9.0 % (20-50)
[2024-10-04] MEDS: cefTRIAXone SODIUM 2,000 MG/50 ML BAG IV STA (15:41)
[2024-10-04 15:44] LABS: Procalcitonin 1.17 ng/ml (0-0.5)
[2024-10-04 16:00] LABS: Ferritin 747.8 ng/ml (8-388)
[2024-10-04 16:09] LABS: Lyme Screen Rflx Confirmation Negative (Negative)
--- NOTE | 2024-10-04 16:23 | Electrocardiogram Report ---
Test Reason : Blood Pressure : */* mmHG Vent. Rate : 89 BPM Atrial Rate : 89 BPM P-R Int : 148 ms QRS Dur : 92 ms QT Int : 374 ms P-R-T Axes : 60 25 147 degrees QTcB Int : 455 ms Sinus rhythm with Premature atrial complexes Abnormal ECG No previous ECGs available Confirmed by Lupillo Zaman ([id number]) on 10/04/2024 4:23:15 PM Referred By: REFERRED SELF Confirmed By: Lupillo Zaman
[2024-10-04] MEDS: DOXYCYCLINE HYCLATE 100 MG in DEXTROSE 5% MINI-B 100 ML IV STA (16:33)
--- NOTE | 2024-10-04 16:35 | CT Scan Report ---
EXAMINATION: CT of the abdomen and pelvis performed without contrast TECHNIQUE: Helical CT images from the lung bases through the symphysis pubis were obtained without contrast. Coronal and sagittal reformatted images were generated at a workstation for further assessment. Dose reduction techniques were achieved by using automatic exposure control and/or adjustment of mA and/or kV according to patient size and/or use of iterative reconstruction technique. COMPARISON: None HISTORY: Abdominal pain FINDINGS: Lower chest: No consolidation. No pleural effusion or pneumothorax. Liver: No suspicious liver lesions. Gallbladder: There is a prominent calcified gallstone. The gallbladder is otherwise decompressed. No evidence of acute cholecystitis. Spleen: Normal size. Pancreas: No suspicious pancreatic lesions. The pancreatic duct is not dilated. Adrenal glands: Bilateral adrenal nodules on the left measuring 2.4 x 2.2 cm and the right measuring 1.9 x 1.7 cm, containing internal low-attenuation values compatible with macroscopic fat, indicating lipid rich adenomas. Kidneys: No hydronephrosis or obstructing renal stones. Bilateral simple appearing cysts. Bladder / Pelvic organs: Unremarkable. Bowel: No bowel obstruction. No abnormal bowel wall thickening. The appendix is unremarkable. Lymph nodes: No retroperitoneal, mesenteric, or pelvic lymphadenopathy. Peritoneum / Retroperitoneum: No free fluid or air within the abdomen. Vessels: No infrarenal aortic aneurysm. Heavy aortoiliac calcification. Bones and soft tissues: No suspicious lesion in the bones. IMPRESSION: No acute intra-abdominal process. Bilateral lipid rich adrenal adenomas. Cholelithiasis. Electronically signed by Lupillo Velarde 10-04-2024 4:35 PM
[2024-10-04] MEDS: POTASSIUM CHLORIDE CRTAB 20 MEQ TABCR PO STA (16:36)
[2024-10-04] MEDS ORDERED: POLYETHYLENE (MIRALAX) 17 GM PACK PO PRN (17:17)
[2024-10-04] MEDS ORDERED: CARBOHYDRATES FOR HYPOGLYCEMIA PO PRN (17:17)
[2024-10-04] MEDS ORDERED: DEXTROSE 50% 50 ML SYRINGE IV PRN (17:17)
[2024-10-04] MEDS ORDERED: GLUCOSE 40% GEL 15 GM TUBE PO PRN (17:17)
[2024-10-04] MEDS ORDERED: ONDANSETRON INJ 2 MG/ML 2 ML VIAL IV PRN (17:17)
[2024-10-04] MEDS ORDERED: GLUCAGON FOR INJ 1 MG VIAL SQ PRN (17:17)
[2024-10-04] MEDS ORDERED: GLUCOSE 10 TAB/TUBE PO PRN (17:17)
[2024-10-04] MEDS: INSULIN ASPART PER UNIT CHARGE SC SCH (18:03)
[2024-10-04 19:21] LABS: Appearance Urine Clear (Clear); Bacteria Urine Automated None Seen (None Seen); Epithelial Cell Urine Auto 0-2 /hpf (0-2); Glucose Urine UA 3+ (Negative); RBC Urine Automated 0-2 /hpf (0-2)
[2024-10-04] MEDS: LANTUS PER UNIT CHARGE SQ SCH (21:52)
[2024-10-04] MEDS: DOXYCYCLINE HYCLATE 100 MG CAP PO SCH (22:32)
[2024-10-05 07:42] LABS: Hemoglobin A1C 8.7 % (4.5-5.6)
[2024-10-05] MEDS: CYANOCOBALAMIN (B-12) 500 MCG TABLET PO SCH (07:58)
[2024-10-05] MEDS: NIFEdipine EXTENDED REL 30 MG TABCR PO SCH (07:59)
[2024-10-05] MEDS: CHOLECALCIFEROL 25 MCG (1000 UNITS) TAB PO SCH (08:00)
[2024-10-05] MEDS: ROSUVASTATIN CALCIUM 10 MG TAB PO SCH (08:00)
[2024-10-05] MEDS: POTASSIUM CHLORIDE CRTAB 20 MEQ TABCR PO SCH (08:08)
[2024-10-05] MEDS: ACETAMINOPHEN 325 MG TAB PO PRN (08:08)
[2024-10-05 08:15] LABS: Hematocrit (blood only) 32.5 % (42.0-52.0); Hemoglobin 11.2 g/dl (14.0-18.0); Mean Corpuscular Hemoglobin 30.6 pg (25.0-34.0); Mean Corpuscular Volume 88.8 fL (80.0-100.0); Platelet Count 65 K/uL (130-400); RDW Standard Deviation 44.1 fL (36.4-46.3); Red Blood Count 3.66 M/uL (4.70-6.10); White Blood Count 1.30 K/ul (4.8-10.8)
[2024-10-05 08:36] LABS: Alanine Aminotransferase 21.0 U/L (7-52); Albumin Globulin Ratio 1.2 (0.9-2); Alkaline Phosphatase 65.0 U/L (34-104); Anion Gap 7.0 (3-11); Bilirubin,Total 0.5 mg/dl (0.2-1.0); Blood Urea Nitrogen 40.0 mg/dl (6-23); Calcium 7.9 mg/dl (8.6-10.3); Carbon Dioxide 26.0 mmol/L (21-32); Chloride 104.0 mmol/L (98-107); Creatinine Clr Calc Pharmacy 36.1 ml/min; Globulin 2.5 gm/dl (2.5-4.0); Glucose 152.0 mg/dl (70-99(Fasting)); Potassium 3.3 mmol/L (3.5-5.1); Sodium 137.0 mmol/L (136-145); Total Protein 5.5 gm/dl (6.0-8.3)
[2024-10-05 08:43] LABS: Immature Granulocytes # (auto) 0.01 K/uL (0.01-0.20); Immature Granulocytes % (auto) 0.8 %
--- NOTE | 2024-10-05 11:48 | Electrocardiogram Report ---
Test Reason : Blood Pressure : */* mmHG Vent. Rate : 66 BPM Atrial Rate : 66 BPM P-R Int : 152 ms QRS Dur : 98 ms QT Int : 416 ms P-R-T Axes : 82 48 146 degrees QTcB Int : 436 ms Sinus rhythm with Premature atrial complexes Abnormal ECG Confirmed by Lupillo Zaman ([id number]) on 10/05/2024 11:48:27 AM Referred By: REFERRED SELF Confirmed By: Lupillo Zaman
[2024-10-05] MEDS: ERGOCALCIFEROL 1250 MCG (50,000 UNITS) CAP PO SCH (16:08)
[2024-10-05] MEDS: cefTRIAXone SODIUM 2,000 MG/50 ML BAG IV SCH (16:08)
--- NOTE | 2024-10-05 16:15 | Hospitalist Progress Note ---
Date of Service October 05, 2024 Assessment & Plan (1) Pancytopenia: (2) Elevated troponin: (3) Generalized weakness: (4) Recurrent falls: (5) Chronic heart failure with preserved ejection fraction (HFpEF): (6) History of complete heart block: (7) Pacemaker: (8) CAD (coronary artery disease): (9) HTN (hypertension): (10) Diabetes mellitus, type II: Plan: per admitting service notes with addendum: #Pancytopenia #Mild neutropenia possible underlying myelodysplastic syndrome coags stable ANC 1121.12 lactate 1.3 Order infectious workup, including lyme and blood cultures order anemia studies CT AB/P ordered Trend CBC with diff CTX and doxy for now (ecoli pansensitive per OSH report and doxy for tick bourne coverage) ESR/CRP and procal pending Neutropenic precautions for now until trend noted hold asa given platelets at 63 10/05/2024 ANC further trending down to 700s hemoglobin stable around 11, platelets 60s Peripheral smear: Suggestive of myelodysplastic syndrome Hematology service consulted #Multiple falls #Generalized weakness -- No overt signs of infection at this point Chest x-ray: No pneumonia UA: No UTI Lyme screen: Negative Anaplasma, Babesia DNA: Pending blood cultures: Pending Continue with empiric ceftriaxone plus doxycycline -- Check orthostatic vital signs -- vitamin D: 16 start vitamin D3 2000 units weekly -- TSH high, T4 normal Repeat thyroid function test as an outpatient -- Generalized weakness likely from #1, deconditioning, poor appetite PT OT evaluation nutrition consult #Abnormal EKG #elevated troponin, suspect demand no cardiac symptoms Troponin levels trending down Echocardiogram: No wall motion abnormalities, EF 55 to 60%, grade 1 diastolic dysfunction #KENA on CKD recent labs reviewed and Cr. 1.6, on admission 1.94 discontinue meloxicam suspect over diuresis give chlorthalidone and torsemide on med rec s/p 1.5L NS, potentially iso dehydration v underlying infectious process -- Creatinine improved to 1.7 Continue gentle IV fluids hold diuretics #hypokalemia replace po continue home po replacement hold chlorthalidone and torsemide -- continue Potassium supplement #Hyponatremia 136 when corrected for hyperglycemia better glucose control -- Na 137 #Status post multiple coronary stents placed in the right coronary artery #Coronary stent procedure complicated by perforation requiring a covered stent #Complete heart block following stent placement requiring a permanent pacemaker 4 Hooper Pacemaker Dual Chamber, placed [address] Parisi Continue metoprolol BID hold asa continue statin # Diabetes mellitus Update A1C hold oral hypoglycemics glargine 25 Units qd basal bolus while admitted # Essential hypertension discontinue chlorthalidone hold torsemide continue coreg continue nifedipine #Abnormal TFTs TSH 5.255, free T4 0.69 consider follow up as op for repeat in 4-6 weeks # Previous war injury with shrapnel to the left eye and possible traumatic brain injury resulting in some cognitive slowing. monitor for risk of delirium DVT prophylaxis SCDs for now in light of thrombocytopenia Admission and Anticipated Discharge Date Admission Date: October 04, 2024 Subjective ff up for weakness, pancytopenia, etc seen resting in bed, sleeping but easily awakened states he still feels weak today- generalized weakness also reports pain on BL buttocks and hips denies lower extremity numbness Denies headache, shortness of breath, cough, abdominal pain, problems urination or bowel movement no fever/chills No other new symptoms Review of Systems Review of Systems: all noted and negative except for above Physical Exam Physical Exam: General- oriented x 3, not in distress, speaks in sentences with no effort or accessory muscle use appears weak Eyes- anicteric Neck- no JVD Lungs- clear breath sounds bilaterally, no rales/wheezes Heart- normal rate, regular rhythm; no murmurs Abdomen- normal bowel sounds, nondistended, soft, nontender Extremities- no pretibial edema, no calf tenderness Neuro- alert, oriented x 3; no gross focal neurologic deficits Skin- warm & dry Results & Data Results & Data Vital Signs (Past 12 Hours) Vital Signs Temp Pulse Resp BP Pulse Ox O2 Del Method 10/05/24 15:29 36.5 C 63 20 127/72 94 Room Air 10/05/24 11:29 36.9 C 64 16 161/75 H 96 Room Air 10/05/24 07:46 36.5 C 96 H 16 169/85 H 96 Room Air all noted and reviewed including below
--- NOTE | 2024-10-05 16:21 | Oncology Consultation ---
Date of Consultation October 05, 2024 Assessment & Plan (1) Pancytopenia: I had a very lengthy discussion with the patient, at this point my recommendation is going to be a bone marrow biopsy to rule out myelodysplastic syndrome given the significant pancytopenia. Once we have the results of the bone marrow biopsy I will have further recommendations. Reviewed the preliminary workup, there are no underlying correctable abnormalities for this patient Plan thank you for this interesting hematological consult. A total of 60 minutes was spent in counseling coronation care, review of prior records. History of Present Illness Reason for Consultation: Pancytopenia Attending Physician: Ozzie Harkins MD History of Present Illness the patient is a very pleasant 78-year-old male with a past history of coronary artery disease, complete heart block, pacemaker, pericardial effusion, initially presented to the ER with recurrent falls. At that point the patient was noted to have pancytopenia. His absolute neutrophil count has been consistently less than 1000, hemoglobin is 10.3 g/dL, platelet count is 76,000. preliminary evaluation done for anemia revealed a serum ferritin of 747, TIBC of 241, LDH of 272, elevated vitamin B12. Hematology has been consulted to assist in management of this patient with significant pancytopenia. Allergies Allergy/AdvReac Type Severity Reaction Status Date / Time No Known Allergies Allergy Unverified 10/04/24 14:55 Home Medications Medication Instructions Recorded Confirmed Type aspirin 81 mg tablet,delayed 81 mg PO DAILY 10/04/24 10/04/24 History release carvedilol 6.25 mg tablet (Coreg) 3.125 mg PO BID 10/04/24 10/04/24 History chlorthalidone 25 mg tablet 25 mg PO DAILY 10/04/24 10/04/24 History cholecalciferol (vitamin D3) 25 50 mcg PO DAILY 10/04/24 10/04/24 History mcg (1,000 unit) tablet (Vitamin D3) cyanocobalamin (vitamin B-12) 1,000 mcg PO DAILY 10/04/24 10/04/24 History 1,000 mcg tablet (Vitamin B-12) insulin glargine 100 unit/mL (3 25 unit subcut DAILY 10/04/24 10/04/24 History mL) subcutaneous pen meloxicam 15 mg tablet 7.5 mg PO DAILY 10/04/24 10/04/24 History nifedipine 60 mg tablet,extended 60 mg PO DAILY 10/04/24 10/04/24 History release potassium chloride 20 mEq 40 meq PO DAILY 10/04/24 10/04/24 History tablet,extended release rosuvastatin 10 mg tablet 10 mg PO DAILY 10/04/24 10/04/24 History sitagliptin 50 mg tablet 50 mg PO DAILY 10/04/24 10/04/24 History torsemide 20 mg tablet 20 mg PO DAILY 10/04/24 10/04/24 History Patient History Medical History (Updated 10/04/24 @ 19:45 by Katarina Ruiz PA-C) History of complete heart block Pacemaker Chronic heart failure with preserved ejection fraction (HFpEF) CAD (coronary artery disease) HTN (hypertension) Diabetes mellitus, type II Surgical History (Updated 10/04/24 @ 17:43 by Katarina Ruiz PA-C) History of cardiac catheterization Social History (Updated 10/04/24 @ 17:43 by Katarina Ruiz PA-C) Smoking Status: Former smoker Do You Dip or Chew Tobacco: Yes (20 years ago); Hx Alcohol Use: No Hx Substance Use: No Preferred Language: Panamanian Communication Ability: Effective Communication Ability Comment: hard of hearing, Left eye prosthetic Electric Transfer Operator Required: No Beliefs That Will Affect Care: None Current Living Situation: Alone Current Living Situation Comment: frequent falls at home Other Information That Helps Us Care for You: No Feels Safe at Home: Yes Safety Concerns: Feels Safe At This Time Assistive Devices: Walker Assistive Devices Comment: patient reports using assistive devices when he goes out of the house Review of Systems Review of Systems: Weakness, falls Constitutional: as per Subjective / HPI Eyes: as per Subjective / HPI Ear, Nose, Mouth, Throat: as per Subjective / HPI Respiratory: as per Subjective / HPI Cardiovascular: as per Subjective / HPI Gastrointestinal: as per Subjective / HPI Genitourinary: + as per Subjective / HPI Musculoskeletal: as per Subjective / HPI Integumentary: as per Subjective / HPI Neurologic: as per Subjective / HPI Psychiatric: as per Subjective / HPI Endocrine: as per Subjective / HPI Hematologic / Lymphatic: as per Subjective / HPI Allergy / Immunological: as per Subjective / HPI Physical Exam Constitutional: WD/WN, vitals as above Eyes: PERRL, conjunctivae normal, anicteric sclerae ENMT: external ear and nose normal, oropharynx normal Neck: trachea midline, no thyromegaly Respiratory: normal respiratory effort, lungs clear to auscultation Cardiovascular: RRR, no murmur, no edema Gastrointestinal (Abdomen): normal bowel sounds, soft, nontender, no hepatosplenomegaly Musculoskeletal: no cyanosis or clubbing, extremities motor strength 5/5 Skin: no rashes, warm and dry Neurologic: patellar DTR's 2+ bilat, sensation intact Psychiatric: A+Ox3, euthymic affect Results & Data Vital Signs (Past 12 Hours) Vital Signs Temp Pulse Resp BP Pulse Ox O2 Del Method 10/05/24 15:29 36.5 C 63 20 127/72 94 Room Air 10/05/24 11:29 36.9 C 64 16 161/75 H 96 Room Air 10/05/24 07:46 36.5 C 96 H 16 169/85 H 96 Room Air
[2024-10-05] MEDS: IRON SUCROSE 300 MG in SODIUM CHLORIDE 0.9% 250 ML IV ONE (17:52)
[2024-10-05] MEDS: ACETAMINOPHEN 500 MG TAB PO SCH (17:53)
[2024-10-05] MEDS: SODIUM CHLORIDE 0.9% 1,000 ML IV SCH (17:53)
--- NOTE | 2024-10-05 18:05 | XRay Report ---
Study: Right humerus 2 views, left humerus 2 views History: Pain Comparison: None Findings: There is no acute fracture or dislocation. Alignment is anatomic. Joint spaces are well maintained. There is no joint effusion or significant soft tissue swelling. Bone mineralization is normal. Impression: No acute bony abnormality Electronically signed by Lupillo Velarde 10-05-2024 6:05 PM
--- NOTE | 2024-10-05 18:06 | XRay Report ---
Study: Pelvis 1 view, right and left hip 2 views History: Pain Comparison: None Findings: There is no acute fracture or dislocation. Alignment is anatomic. Joint spaces are well maintained. There is no joint effusion or significant soft tissue swelling. Bone mineralization is normal. Impression: No acute bony abnormality Electronically signed by Lupillo Velarde 10-05-2024 6:05 PM
--- NOTE | 2024-10-05 18:06 | XRay Report ---
Exam: XR lumbar spine, 3 views History: Back pain Comparison: None available. Findings: AP and lateral views the lumbar spine were obtained. 5 lumbar type vertebral bodies are assumed for the purpose of this dictation. There is no acute osseous abnormality. Normal lumbar lordosis is maintained. There is multilevel degenerative changes of the lumbar spine. Straightened lumbar lordosis. Moderate to severe degenerative disc height loss at L4-5. Remaining disc heights appear relatively maintained. Vascular calcifications. The visualized bowel gas pattern is non-obstructive. Impression: 1. No acute osseous abnormality. 2. Multilevel degenerative changes Electronically signed by Lupillo Velarde 10-05-2024 6:05 PM
[2024-10-06 04:43] LABS: Hematocrit (blood only) 29.5 % (42.0-52.0); Hemoglobin 10.3 g/dl (14.0-18.0); Mean Corpuscular Hemoglobin 31.4 pg (25.0-34.0); Mean Corpuscular Volume 89.9 fL (80.0-100.0); Platelet Count 76 K/uL (130-400); RDW Standard Deviation 43.0 fL (36.4-46.3); Red Blood Count 3.28 M/uL (4.70-6.10); White Blood Count 1.63 K/ul (4.8-10.8)
[2024-10-06 04:57] LABS: Alanine Aminotransferase 20.0 U/L (7-52); Albumin Globulin Ratio 1.0 (0.9-2); Alkaline Phosphatase 63.0 U/L (34-104); Anion Gap 6.0 (3-11); Bilirubin,Total 0.4 mg/dl (0.2-1.0); Blood Urea Nitrogen 33.0 mg/dl (6-23); Calcium 8.1 mg/dl (8.6-10.3); Carbon Dioxide 26.0 mmol/L (21-32); Chloride 107.0 mmol/L (98-107); Creatinine Clr Calc Pharmacy 39.3 ml/min; Globulin 2.7 gm/dl (2.5-4.0); Glucose 180.0 mg/dl (70-99(Fasting)); Magnesium 1.9 mg/dl (1.7-2.4); Potassium 3.2 mmol/L (3.5-5.1); Sodium 139.0 mmol/L (136-145); Total Protein 5.4 gm/dl (6.0-8.3)
[2024-10-06 05:57] LABS: Immature Granulocytes # (auto) 0.01 K/uL (0.01-0.20); Immature Granulocytes % (auto) 0.6 %
[2024-10-06] MEDS: FERROUS SULFATE 325 MG TAB PO SCH (12:51)
[2024-10-06] MEDS: POTASSIUM CHLORIDE 10 MEQ TABCR PO ONE (12:51)
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
[2024-10-07 08:32] LABS: Hematocrit (blood only) 33.4 % (42.0-52.0); Hemoglobin 11.9 g/dl (14.0-18.0); Mean Corpuscular Hemoglobin 31.1 pg (25.0-34.0); Mean Corpuscular Volume 87.2 fL (80.0-100.0); Platelet Count 119 K/uL (130-400); RDW Standard Deviation 41.6 fL (36.4-46.3); Red Blood Count 3.83 M/uL (4.70-6.10); White Blood Count 2.72 K/ul (4.8-10.8)
[2024-10-07 08:53] LABS: Alanine Aminotransferase 17.0 U/L (7-52); Albumin Globulin Ratio 1.1 (0.9-2); Alkaline Phosphatase 68.0 U/L (34-104); Anion Gap 7.0 (3-11); Bilirubin,Total 0.5 mg/dl (0.2-1.0); Blood Urea Nitrogen 29.0 mg/dl (6-23); Calcium 8.8 mg/dl (8.6-10.3); Carbon Dioxide 28.0 mmol/L (21-32); Chloride 105.0 mmol/L (98-107); Creatinine Clr Calc Pharmacy 48.7 ml/min; Globulin 2.8 gm/dl (2.5-4.0); Glucose 178.0 mg/dl (70-99(Fasting)); Potassium 3.5 mmol/L (3.5-5.1); Sodium 140.0 mmol/L (136-145); Total Protein 6.0 gm/dl (6.0-8.3)
[2024-10-07 08:56] LABS: Immature Granulocytes # (auto) 0.01 K/uL (0.01-0.20); Immature Granulocytes % (auto) 0.4 %; RBC Morphology Unremarkable
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
[2024-10-08 06:20] LABS: Hematocrit (blood only) 33.2 % (42.0-52.0); Hemoglobin 11.5 g/dl (14.0-18.0); Mean Corpuscular Hemoglobin 30.2 pg (25.0-34.0); Mean Corpuscular Volume 87.1 fL (80.0-100.0); Platelet Count 139 K/uL (130-400); RDW Standard Deviation 41.7 fL (36.4-46.3); Red Blood Count 3.81 M/uL (4.70-6.10); White Blood Count 3.24 K/ul (4.8-10.8)
[2024-10-08 06:33] LABS: Alanine Aminotransferase 19.0 U/L (7-52); Albumin Globulin Ratio 1.3 (0.9-2); Alkaline Phosphatase 62.0 U/L (34-104); Anion Gap 5.0 (3-11); Bilirubin,Total 0.4 mg/dl (0.2-1.0); Blood Urea Nitrogen 31.0 mg/dl (6-23); Calcium 8.6 mg/dl (8.6-10.3); Carbon Dioxide 28.0 mmol/L (21-32); Chloride 106.0 mmol/L (98-107); Creatinine Clr Calc Pharmacy 55.6 ml/min; Globulin 2.4 gm/dl (2.5-4.0); Glucose 169.0 mg/dl (70-99(Fasting)); Potassium 3.4 mmol/L (3.5-5.1); Sodium 139.0 mmol/L (136-145); Total Protein 5.5 gm/dl (6.0-8.3)
[2024-10-08 06:48] LABS: Immature Granulocytes # (auto) 0.01 K/uL (0.01-0.20); Immature Granulocytes % (auto) 0.3 %; Polychromasia 1+
[2024-10-08] MEDS: POTASSIUM CHLORIDE 10 MEQ TABCR PO SCH (10:28)
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
[2024-10-09 06:48] LABS: Hematocrit (blood only) 35.3 % (42.0-52.0); Hemoglobin 12.3 g/dl (14.0-18.0); Immature Granulocytes # (auto) 0.03 K/uL (0.01-0.20); Immature Granulocytes % (auto) 0.7 %; Mean Corpuscular Hemoglobin 30.8 pg (25.0-34.0); Mean Corpuscular Volume 88.5 fL (80.0-100.0); Platelet Count 181 K/uL (130-400); RDW Standard Deviation 43.0 fL (36.4-46.3); Red Blood Count 3.99 M/uL (4.70-6.10); White Blood Count 4.50 K/ul (4.8-10.8)
[2024-10-09 07:11] LABS: Alanine Aminotransferase 32.0 U/L (7-52); Albumin Globulin Ratio 1.3 (0.9-2); Alkaline Phosphatase 65.0 U/L (34-104); Anion Gap 6.0 (3-11); Bilirubin,Total 0.5 mg/dl (0.2-1.0); Blood Urea Nitrogen 30.0 mg/dl (6-23); Calcium 8.7 mg/dl (8.6-10.3); Carbon Dioxide 28.0 mmol/L (21-32); Chloride 106.0 mmol/L (98-107); Creatinine Clr Calc Pharmacy 45.9 ml/min; Globulin 2.6 gm/dl (2.5-4.0); Glucose 101.0 mg/dl (70-99(Fasting)); Potassium 3.7 mmol/L (3.5-5.1); Sodium 140.0 mmol/L (136-145); Total Protein 5.9 gm/dl (6.0-8.3)
[2024-10-09] MEDS: hydroCHLOROthiazide 25 MG TAB PO SCH (09:24)
--- NOTE | 2024-10-09 09:28 | Hospitalist Progress Note ---
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 ANC further trending down to 700s hemoglobin stable around 11, platelets 60s Peripheral smear: Suggestive of myelodysplastic syndrome Hematology service consulted 10/07 CBC trending up Outpatient bone marrow biopsy per hematology service 10/09 (+) Anaplasmosis DNA Babesia pending Lyme screen negative CBC much improved ANC normal Plt normal HG improved to 12 -- continue Doxycycline x 10 more days -- repeat CBC as an outpatient to see if patient would still require Bone Marrow Biopsy #Multiple falls #Generalized weakness -- much better compared to admission -- likely secondary to Anaplasmosis Management per above -- Check orthostatic vital signs -- vitamin D: 16 started on vitamin D3 2000 units weekly -- TSH high, T4 normal Repeat thyroid function test as an outpatient -- Generalized weakness also likely deconditioning, poor appetite--> improving PT OT evaluation nutrition consult: Boost ordered #Abnormal EKG #elevated troponin, suspect demand no cardiac symptoms Troponin levels trending down Echocardiogram: No wall motion abnormalities, EF 55 to 60%, grade 1 diastolic dysfunction #KENA on CKD recent labs reviewed and Cr. 1.6, on admission 1.94 discontinue meloxicam suspect over diuresis give chlorthalidone and torsemide on med rec s/p 1.5L NS, potentially iso dehydration v underlying infectious process -- Creatinine improved to 1.7 -- nephrology service consulted in light of uncontrolled hypertension renal artery ultrasound: No stenosis -- started on indapamide #Microscopic Hematuria -- will need further workup as an outpatient #hypokalemia replace po continue home po replacement hold chlorthalidone and torsemide -- continue Potassium supplement #Hyponatremia 136 when corrected for hyperglycemia better glucose control -- Na 140 #Status post multiple coronary stents placed in the right coronary artery #Coronary stent procedure complicated by perforation requiring a covered stent #Complete heart block following stent placement requiring a permanent pacemaker 4 #Grade 1 diastolic dysfunction Hooper Pacemaker Dual Chamber, placed [address] Parisi --Continue metoprolol BID resume aspirin continue statin -- echo: Grade 1 diastolic dysfunction patient euvolemic at this time # Diabetes mellitus A1C: 8.7 hold oral hypoglycemics glargine 25 Units qd basal bolus while admitted # Essential hypertension chlorthalidone and torsemide discontinued on admission in light of dehydration -- BP elevated carvedilol increased from 3.125 to 6.25 mg twice daily Nifedipine XL 60 mg continued -- BP still elevated Nephrology service consulted next workup for adenoma in progress Indapamide started #Abnormal TFTs TSH 5.255, free T4 0.69 follow up as op for repeat in 4-6 weeks # Previous war injury with shrapnel to the left eye and possible traumatic brain injury resulting in some cognitive slowing. monitor for risk of delirium DVT prophylaxis SCDs heparin SC when BP improves Disposition pending PT/O eval lives at home Admission and Anticipated Discharge Date Admission Date: October 04, 2024 Subjective seen resting in bed, comfortable, not in distress Patient is frustrated as he still needs to stay in the hospital longer Explained the need to regulate his blood pressure and do further workup States he feels fine overall Denies headache, chest pain, shortness of breath, dizziness, palpitations states his weakness is much better, ambulating the hallways with a walker No other new symptoms Review of Systems Review of Systems: all noted and negative except for above Physical Exam Physical Exam: General- oriented x 3, not in distress, speaks in sentences with no effort or accessory muscle use Eyes- anicteric Neck- no JVD Lungs- clear breath sounds bilaterally, no rales/wheezes Heart- normal rate, regular rhythm; no murmurs Abdomen- normal bowel sounds, nondistended, soft, nontender Extremities- no pretibial edema, no calf tenderness Neuro- alert, oriented x 3; no gross focal neurologic deficits Skin- warm & dry Results & Data Results & Data Vital Signs (Past 12 Hours) Vital Signs Temp Pulse Pulse Resp BP BP Pulse Ox 10/09/24 08:37 36.6 C 86 16 178/100 H 97 10/09/24 07:35 36.5 C 88 16 186/92 H 97 10/09/24 05:31 103 H 176/83 H 10/09/24 05:30 83 175/84 H 10/09/24 05:28 75 195/95 H 10/08/24 22:32 36.7 C 68 17 157/81 H 95 O2 Del Method 10/09/24 08:37 Room Air 10/09/24 07:35 Room Air 10/09/24 05:31 10/09/24 05:30 10/09/24 05:28 10/08/24 22:32 Room Air all noted and reviewed including below
[2024-10-09 12:08] VITALS: TEMP 97.5
--- NOTE | 2024-10-09 14:49 | Nephrology Consultation ---
Date of Consultation October 09, 2024 Assessment & Plan (1) Hypertensive urgency: AVOID spironolactone until we can evaluate cortisol levels, ARR. He should not be on meloxicam or NSAIDs: Continue to avoid and do not resume at discharge Continue increased dose of carvedilol at 6.25 mg twice daily, dennys calcium channel cordell current dose Change out hydrochlorothiazide for indapamide 1.25 mg, the latter is a stronger thiazide like diuretic Continue as needed hydralazine Hold off on torsemide for now Supplement potassium 40 mill equivalents twice daily (2) Adrenal adenoma: Bilateral adrenal adenoma to in the setting of uncontrolled hypertension needs evaluation for subclinical Brigantine syndrome and for hyperaldosteronism. Mild hypokalemia despite aggressive supplementation on thiazide diuretics Draw DHEA-S now 1 mg DST overnight with Ady renin ratio in a.m. as well I will arrange above testing Avoid spironolactone until this testing is complete (3) Recurrent falls: f/u PT eval Obtain orthostatic vital signs if feasible/safe History of Present Illness Reason for Consultation: uncontrolled HTN, CKD, HFpEF Requesting Physician: Dr Harkins Attending Physician: Ozzie Harkins MD History of Present Illness 78 y/o M whom I"m asked to see for uncontrolled HTN, HFpEF, CKD was admitted here on 10/04 w/ creatinine 2.0 after p/w recurrent falls. PMH includes CAD s/p multiple R heart stents, complicated by complete heart block and perforation, s/p pacemaker 08/29/2018, h/o pericardial effusion w/ spontaneous resoulation and did not require drainage, chronic HFpEF, HTN, HLD, DMII, PTSD, vitamin D deficiency. Also w/ 08/18/24July hospitalization at [facility] 08/18/2024 with diagnosis of acute on chronic HFpEF, E coli UTI; PNA dx while there. Edema from that hsopital stay resolved; endorses 15 lb wt loss since d/c. Patient w/ longstanding bilateral posterior leg pain and chronic BLE weakness for "many years" and w/ generalized weakness. He has walker but does not use it and reports multiple falls multiple times a day w/ difficulty getting up afterward. Also w/ one month of exertional dyspnea prior to admission but no orthopnea. No CP, no f but + chills. poor appetite in part d/t N; no abd pain, emesis, constipation/diarrhea. no palpitations chest pain sob, cough. no new/worrisome voiding sx. no syncope, his OP meloxicam was stopped. sbp have been running consistently 170-200s. he has no internet service or cell phone and is visuall impaired but does have a soft measure blood pressure cuff at home upper arm. His OP coreg was upped from 3.125 > 6.25 mg bid; chlorthalidone changed to hctz same dose. nifedipine 60 mg daily continued. his OP torsemide has been held. He's also had 2 extra hydralazine doses today. He Noted on admission to have pancytopenia for which [facility]MB[facility] recommended to evaluate for MDS. . Allergies Allergy/AdvReac Type Severity Reaction Status Date / Time No Known Allergies Allergy Unverified 10/04/24 14:55 Home Medications Medication Instructions Recorded Confirmed Type aspirin 81 mg tablet,delayed 81 mg PO DAILY 10/04/24 10/04/24 History release carvedilol 6.25 mg tablet (Coreg) 3.125 mg PO BID 10/04/24 10/04/24 History chlorthalidone 25 mg tablet 25 mg PO DAILY 10/04/24 10/04/24 History cholecalciferol (vitamin D3) 25 50 mcg PO DAILY 10/04/24 10/04/24 History mcg (1,000 unit) tablet (Vitamin D3) cyanocobalamin (vitamin B-12) 1,000 mcg PO DAILY 10/04/24 10/04/24 History 1,000 mcg tablet (Vitamin B-12) insulin glargine 100 unit/mL (3 25 unit subcut DAILY 10/04/24 10/04/24 History mL) subcutaneous pen meloxicam 15 mg tablet 7.5 mg PO DAILY 10/04/24 10/04/24 History nifedipine 60 mg tablet,extended 60 mg PO DAILY 10/04/24 10/04/24 History release potassium chloride 20 mEq 40 meq PO DAILY 10/04/24 10/04/24 History tablet,extended release rosuvastatin 10 mg tablet 10 mg PO DAILY 10/04/24 10/04/24 History sitagliptin 50 mg tablet 50 mg PO DAILY 10/04/24 10/04/24 History torsemide 20 mg tablet 20 mg PO DAILY 10/04/24 10/04/24 History Patient History Medical History (Updated 10/09/24 @ 16:13 by Ambar Teixeira MD, PhD) History of complete heart block Pacemaker Chronic heart failure with preserved ejection fraction (HFpEF) CAD (coronary artery disease) HTN (hypertension) Diabetes mellitus, type II Surgical History (Updated 10/04/24 @ 17:43 by Katarina Ruiz PA-C) History of cardiac catheterization Social History (Updated 10/04/24 @ 17:43 by Katarina Ruiz PA-C) Smoking Status: Former smoker Do You Dip or Chew Tobacco: Yes (20 years ago); Hx Alcohol Use: No Hx Substance Use: No Preferred Language: Bengali Communication Ability: Effective Communication Ability Comment: hard of hearing, Left eye prosthetic Customer Order Clerk Required: No Beliefs That Will Affect Care: None Current Living Situation: Alone Current Living Situation Comment: frequent falls at home Other Information That Helps Us Care for You: No Feels Safe at Home: Yes Safety Concerns: Feels Safe At This Time Assistive Devices: Walker Assistive Devices Comment: patient reports using assistive devices when he goes out of the house Review of Systems 2 Review of Systems: All systems reviewed & are unremarkable except as noted in HPI & below Physical Exam 2 Constitutional: well developed, well nourished, + frail appearing and cooperative; no acute distress Eyes: EOM intact bilaterally (But amblyopia) ENMT: Mouth: + dry oral mucous membranes Respiratory: normal respiratory effort Auscultation: + diminished lung sounds Cardiovascular: Rate/Rhythm: regular rate (Heart sounds distant) E xtremities: no edema Gastrointestinal (Abdomen): Inspection/Auscultation: + abdomen distended and normal bowel sounds Percussion/Palpation: abdomen soft; abdomen nontender Musculoskeletal: Extremities: strength 5/5 throughout Skin: no rashes, warm and dry Neurologic: mcfarlane, fluent speech, no tremor Psychiatric: Orientation: alert and oriented x 3 Speech: normal rate/rhythm/volume of speech Affect: + irritable affect Results & Data Vital Signs (Past 12 Hours) Vital Signs Temp Pulse Pulse Resp BP BP Pulse Ox 10/09/24 14:01 198/78 H 10/09/24 12:45 177/78 H 10/09/24 12:07 36.4 C L 67 16 188/95 H 98 10/09/24 10:23 149/81 H 10/09/24 08:37 36.6 C 86 16 178/100 H 97 10/09/24 07:35 36.5 C 88 16 186/92 H 97 10/09/24 05:31 103 H 176/83 H 10/09/24 05:30 83 175/84 H 10/09/24 05:28 75 195/95 H O2 Del Method 10/09/24 14:01 10/09/24 12:45 10/09/24 12:07 Room Air 10/09/24 10:23 10/09/24 08:37 Room Air 10/09/24 07:35 Room Air 10/09/24 05:31 10/09/24 05:30 10/09/24 05:28 Laboratory Results 10/09/24 05:54 10/09/24 05:[address] a/p non con 10/04/24 FINDINGS: Lower chest: No consolidation. No pleural effusion or pneumothorax. Adrenal glands: Bilateral adrenal nodules on the left measuring 2.4 x 2.2 cm and the right measuring 1.9 x 1.7 cm, containing internal low-attenuation values compatible with macroscopic fat, indicating lipid rich adenomas. Kidneys: No hydronephrosis or obstructing renal stones. Bilateral simple appearing cysts. Lymph nodes: No retroperitoneal, mesenteric, or pelvic lymphadenopathy. Vessels: No infrarenal aortic aneurysm. Heavy aortoiliac calcification. Bones and soft tissues: No suspicious lesion in the bones. IMPRESSION: No acute intra-abdominal process. Bilateral lipid rich adrenal adenomas. Cholelithiasis.
[2024-10-09] MEDS: NIFEdipine EXTENDED REL 30 MG TABCR PO STA (14:51)
--- NOTE | 2024-10-09 15:11 | Ultrasound Report ---
US duplex renal art/vein BI HISTORY: 78 years-old Male r/o renal artery stenosis hypertension COMPARISON: CT abdomen and pelvis 10/04/2024 TECHNIQUE: Multiple real-time sonographic images of the renal vessels were obtained assessing graysca le appearance, color and spectral flow FINDINGS: The right kidney measures 11.9 cm and the left measures 11.8 cm. Exophytic renal cysts again noted. N ormal waveforms within the abdominal aorta, peak systolic velocities measuring up to 87 cm/s, resisti ve index of 0.87. Patent renal arteries and veins. No elevated peak systolic velocities to suggest re nal arterial stenosis. IMPRESSION: No evidence of renal arterial stenosis. ACT 112: Negative or not required by law. The above report was generated using voice recognition software. It may contain grammatical, syntax o r spelling errors. Electronically signed by: John Garibay M.D. 10/09/2024 3:09 PM
[2024-10-09] MEDS: DOXYCYCLINE HYCLATE 100 MG CAP PO SCH (16:05)
[2024-10-10 07:10] VITALS: O2SAT 96
[2024-10-10 08:36] LABS: Hematocrit (blood only) 37.9 % (42.0-52.0); Hemoglobin 12.9 g/dl (14.0-18.0); Mean Corpuscular Hemoglobin 30.8 pg (25.0-34.0); Mean Corpuscular Volume 90.5 fL (80.0-100.0); Platelet Count 232 K/uL (130-400); RDW Standard Deviation 44.1 fL (36.4-46.3); Red Blood Count 4.19 M/uL (4.70-6.10); White Blood Count 5.11 K/ul (4.8-10.8)
--- NOTE | 2024-10-10 08:46 | Nephrology Progress Note ---
Date of Service October 10, 2024 Assessment & Plan (1) Hypertensive urgency: Plan: in the setting of orthostatic hypotension, labile BP. cont to AVOID spironolactone until we can evaluate cortisol levels, ARR. He should not be on meloxicam or NSAIDs: Continue to avoid and do not resume at discharge Continue increased dose of carvedilol at 6.25 mg twice daily, continue calcium channel cordell current dose Continue indapamide 1.25 mg, the latter is a stronger thiazide like diuretic even than chlorthalidone Continue as needed hydralazine in house > he had a one time dose yesterday PM Hold off on torsemide for now Supplement potassium 40 mill equivalents twice daily NEPH D/C RECS: DX: Hypertensive urgency, orthostatic hypotension, labile blood pressure, frequent falls, suspect situational hypertension RX: >minimize or better yet stop meloxicam given BP and cardiac issues -change back to chlorthalidone 12.5 (not 25) mg daily at d/c and do not d/c on indapamide -continue nifedipine 60 mg daily -consider lowering carvedilol back to 3.125 mg daily -resume torsemide at lower 5 mg daily dose -lower K dose to 20 mEq daily OTHER CARE: -HHN to check orthostatic BP with minimum 2 minutes between position change before repeat BP/HR and document -encourage pt to change positions slowly -pt to contact [facility], [facility] if dyspnea, voiding concerns, falling again, other worrisome issues -pt to log BP at home daily with HR and bring log to f/u neph appt -pt to bring home BP cuff along to neph appt -less than 2 gm daily Na diet -may need endocrine evaluation of BL adrenal nodules - neph will evaluate as OP and will f/u pending labs -bmp, acr, prot/creat, uacm to be done week of neph appt and ordered by neph nurse F/U APPTS: -hospital d/c nephrology [facility] ONLY in 2-3 wks with me; bring home BP cuff and above BP log to appt Care coordinated w/ Dr Wilcox via [employer] regarding d/c medications, d/c labs and f/u care/appts; we are in agreement. (2) Adrenal adenoma: Plan: Bilateral adrenal adenomata in the setting of uncontrolled hypertension needs evaluation for subclinical Varsha syndrome and for hyperaldosteronism. Mild hypokalemia despite aggressive supplementation on thiazide diuretics. 1 day DST for pt with CKD is wnl - CKD cut offs for DST not well defined; suggest endocrine evaluation after d/c possibly as telehealth or w/ [facility]; may benefit from 2 day test f/u pending DHEA x 2, ARR after DST Avoid spironolactone until this testing is complete, likely after d/c - at f/u will need HHN and clinic to check orthostatics given recurrent falls - at f/u will need SMBP - assess proteinuria status when BP better controlled (SBP 140s supine) (3) Recurrent falls: Plan: f/u PT eval >>orthostatic 3 of 5 checks by BP or HR or both (usually SBP drop) this admission >> so needs higher BP target of 140 or 150 mmHg systolic depending on proteinuria status Admission and Anticipated Discharge Date Admission Date: October 04, 2024 Subjective got dex at 2315 last evening; am labs drawn 0820; on 2 D forms; no acute interval events. walked 3 laps of the unit today w/o sx or per RN concerns from PT; no sob, no n/v, extremely anxious/eager about getting home Review of Systems 2 Review of Systems: All systems reviewed & are unremarkable except as noted in Subjective Physical Exam 2 Constitutional: well developed, well nourished, + frail appearing and cooperative; no acute distress Eyes: R EOMI intact ENMT: Mouth: + dry oral mucous membranes Respiratory: normal respiratory effort Auscultation: + diminished lung sounds Cardiovascular: Rate/Rhythm: regular rate (Heart sounds distant) E xtremities: no edema Gastrointestinal (Abdomen): Inspection/Auscultation: + abdomen distended and normal bowel sounds Percussion/Palpation: abdomen soft; abdomen nontender Musculoskeletal: Extremities: strength 5/5 throughout Skin: no rashes, warm and dry Psychiatric: Orientation: alert and oriented x 3 Speech: normal rate/rhythm/volume of speech Affect: + anxious affect Results & Data Vital Signs (Past 12 Hours) Vital Signs Temp Pulse Resp BP Pulse Ox O2 Del Method 10/10/24 07:09 36.4 C L 74 16 157/73 H 96 Room Air Laboratory Results 10/10/24 08:19 10/10/24 08:19
[2024-10-10 08:52] LABS: Alanine Aminotransferase 38.0 U/L (7-52); Albumin Globulin Ratio 1.3 (0.9-2); Alkaline Phosphatase 70.0 U/L (34-104); Anion Gap 6.0 (3-11); Bilirubin,Total 0.6 mg/dl (0.2-1.0); Blood Urea Nitrogen 28.0 mg/dl (6-23); Calcium 8.6 mg/dl (8.6-10.3); Carbon Dioxide 26.0 mmol/L (21-32); Chloride 105.0 mmol/L (98-107); Creatinine Clr Calc Pharmacy 49.5 ml/min; Globulin 2.7 gm/dl (2.5-4.0); Glucose 126.0 mg/dl (70-99(Fasting)); Potassium 4.4 mmol/L (3.5-5.1); Sodium 137.0 mmol/L (136-145); Total Protein 6.3 gm/dl (6.0-8.3)
[2024-10-10] MEDS: ASPIRIN 81 MG ECTAB PO SCH (08:52)
[2024-10-10] MEDS: INDAPAMIDE 1.25 MG TAB PO SCH (08:52)
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
[2024-10-10 15:17] VITALS: BP 165/76; PULSE 77; RESP 18
== END 2024-10-10 16:31 | disposition home health service (06) | DRG 809 ==
LOC: ED 12:38 → EDINP 14:46 → SUATTDRO 14:46 → 2N 17:17 → 3E 10-08 17:27